=== PATIENT | male | born 1995 | race American Indian/Alaskan Native ===

== ENCOUNTER 2016-11-30 20:38 | Emergency (ER) | payer SELFPAY ==
[2016-12-01] MEDS ORDERED: NACL 0.9% 500 ML IR ONE (00:40)
[2016-12-01] MEDS ORDERED: XYLOCAINE 1% MPF 5 mL ONE ×2 (00:54→01:09)
[2016-12-01 00:58] VITALS: BP 128/80
[2016-12-01] MEDS ORDERED: NACL 0.9% IR ONE (01:18)
[2016-12-01] MEDS ORDERED: XYLOCAINE 1% MPF 5 mL INFILTRATI ONE (01:19)
[2016-12-01] MEDS ORDERED: BOOSTRIX IM ONE (02:14)
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
== END 2016-12-01 02:34 | disposition home or self-care (01) ==
LOC: ED 20:38
DX: S61.214A Laceration without foreign body of right ring finger without damage to nail, initial encounter (principal); F17.200 Nicotine dependence, unspecified, uncomplicated; W23.0XXA Caught, crushed, jammed, or pinched between moving objects, initial encounter; Y93.9 Activity, unspecified; Y99.9 Unspecified external cause status; Y92.009 Unspecified place in unspecified non-institutional (private) residence as the place of occurrence of the external cause
CPT/HCPCS: 90471; 90715

== ENCOUNTER 2018-01-16 23:24 | Emergency (ER) | payer SELFPAY ==
[2018-01-16] MEDS ORDERED: XYLOCAINE 1%/ EPI 1:100,000 INFILTRATI ONE (23:51)
[2018-01-16] MEDS ORDERED: XYLOCAINE 1% 20 mL ONE (23:53)
[2018-01-17] MEDS ORDERED: NACL 0.9% 1000 ML 1,000 ML IV ONE (00:32)
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
[2018-01-17 00:53] LABS: Hematocrit 47.2 % (35.5-45.6); Hemoglobin 15.5 gm/dl (11.8-15.2); Mean Corpuscular HGB Conc 33 % (32-34); Mean Corpuscular Hemoglobin 29 pg (28-32); Mean Corpuscular Volume 89 fl (84-94); Platelet Count 339 K/mm3 (140-440); Red Blood Count 5.29 M/mm3 (3.65-5.03); Red Cell Distribution Width 12.5 % (13.2-15.2)
[2018-01-17 01:02] LABS: BUN/Creatinine Ratio 9; Blood Urea Nitrogen 8 mg/dL (9-20); Hemolysis Index 13
[2018-01-17 01:44] LABS: INR 0.94 (0.87-1.13)
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
[2018-01-17 03:03] VITALS: BP 123/73
[2018-01-17 03:28] LABS: Band Neutrophils # (Manual) 0.4 K/mm3; Basophils % (Manual) 0 % (0.0-1.8); Eosinophils % (Manual) 0 % (0.0-4.3); Total Cells Counted 100
[2018-01-17 03:29] LABS: RBC Morphology Normal
== END 2018-01-17 03:10 | disposition home or self-care (01) ==
LOC: ED 23:24
DX: S01.81XA Laceration without foreign body of other part of head, initial encounter (principal); F10.129 Alcohol abuse with intoxication, unspecified; F17.200 Nicotine dependence, unspecified, uncomplicated; F12.10 Cannabis abuse, uncomplicated; Y90.9 Presence of alcohol in blood, level not specified; Z79.899 Other long term (current) drug therapy; W22.8XXA Striking against or struck by other objects, initial encounter; Y93.89 Activity, other specified; Y99.8 Other external cause status; Y92.89 Other specified places as the place of occurrence of the external cause
CPT/HCPCS: 12013; 36415; 70450; 70486; 80048; 85007; 85025; 85610; 85730; 86850; 86900; 86901; 96360; 99284; G0480; J7030; 80320

== ENCOUNTER 2018-01-23 14:02 | Emergency (ER) | payer SELFPAY ==
[2018-01-23 14:59] VITALS: BP 143/79
== END 2018-01-23 18:06 | disposition left against medical advice (07) ==
LOC: ED 14:02
DX: Z48.00 Encounter for change or removal of nonsurgical wound dressing (principal); Z53.21 Procedure and treatment not carried out due to patient leaving prior to being seen by health care provider

== ENCOUNTER 2019-10-26 17:12 | Emergency (ER) | payer SELFPAY ==
[2019-10-26 18:26] VITALS: BP 130/67
--- NOTE | 2019-10-26 18:41 | Emergency Department Report ---
Chief Complaint: Urogenital-Male Stated Complaint: BURNING WHEN URINATE Time Seen by Provider: 10/26/19 18:36 - HPI History of Present Illness: C/O burning with urination requesting STD check. Denies abdominal pain no fever no vomiting or chills. - ROS Review of Systems: All symptoms reviewed and are negative - Exam Vital Signs: Vital Signs 10/26/19 18:24 Temperature 98.8 F Pulse Rate 63 Respiratory 16 Rate Blood Pressure 130/67 O2 Sat by Pulse 99 Oximetry Physical Exam: Awake alert in no distress Resp easy and unlabored Skin warm and dry VSS Steady gait MSE screening note: Focused history and physical exam performed. Due to findings the following was ordered: ED Medical Decision Making - Medical Decision Making Pt present for STD screening. Reports burning with urination. He denies no other symptoms Reviewed ER policy foR STD Screening Pt given follow up with his PCP, Dr. Luis Antonio Noble, or [facility], [place] local health department ED Disposition for MSE Clinical Impression: Screening for STD (sexually transmitted disease) Disposition: TO HOME OR SELFCARE Is pt being admited?: No Does the pt Need Aspirin: No Condition: Stable Instructions: Sexually Transmitted Diseases (ED) Additional Instructions: Follow up with your PCP, or [facility] or Dr. Luis Antonio Noble. Forms: Work/School Release Form(ED)
== END 2019-10-26 18:30 | disposition home or self-care (01) ==
LOC: ED 17:12
DX: A64 Unspecified sexually transmitted disease (principal)
CPT/HCPCS: 99281